=== PATIENT | male | born 1955 | race Caucasian/White ===

== ENCOUNTER 2019-04-09 20:59 | Emergency (ER) | payer BC, OTHER ==
[~2019-04-09] VITALS: Ht 182.9 cm; Wt 97.5 kg
[~2019-04-09 20:59] MED LIST: BAYER CHEWABLE81 MG PO; PRINIVIL20 MG PO; ZOCOR20 MG PO
[2019-04-09 22:00] VITALS: BP 116/95
== END 2019-04-09 22:01 | disposition home or self-care (01) ==
LOC: ER 20:59
DX: T18.128A Food in esophagus causing other injury, initial encounter (principal); I10 Essential (primary) hypertension; E78.00 Pure hypercholesterolemia, unspecified; X58.XXXA Exposure to other specified factors, initial encounter; Y93.89 Activity, other specified; Y92.89 Other specified places as the place of occurrence of the external cause; Y99.8 Other external cause status

== ENCOUNTER 2021-08-29 21:19 | Emergency (ER) | payer OTHER, MEDICARE ==
[~2021-08-29] VITALS: Ht 182.9 cm; Wt 102.1 kg
[2021-08-29 23:24] LABS: ABSOLUTE NEUTROPHILS 10.1 thou/uL (1.4-8.2); BASOPHILS 0.4 % (0.0-2.0); EOSINOPHILS 2.1 % (0.0-3.0); HEMATOCRIT 40.7 % (42.0-52.0); LYMPHOCYTES 12.3 % (24.0-44.0); MCH 31.3 pg (26.0-34.0); MCHC 34.4 g/dL (28.0-37.0); MONOCYTES 8.1 % (1.0-8.0); PLATELET COUNT 286 thou/uL (150-400); POLYS 77.1 % (36.0-66.0); RBC 4.47 mil/uL (4.50-6.00); RDW 12.2 % (10.5-14.5); WBC 13.1 thou/uL (4.0-11.0)
[2021-08-29 23:27] LABS: CALCIUM 8.9 mg/dL (8.5-10.1); CREATININE 0.9 mg/dL (0.7-1.3); POTASSIUM 4.1 mmol/L (3.5-5.1)
[2021-08-29 23:33] LABS: ALBUMIN 3.9 g/dL (3.4-5.0); TOTAL BILIRUBIN 0.3 mg/dL (0.2-1.0); TOTAL PROTEIN 7.4 g/dL (6.4-8.2)
[2021-08-30 00:20] VITALS: BP 171/84
== END 2021-08-30 00:20 | disposition home or self-care (01) ==
LOC: ER 21:19
PROVIDERS: Emergency Medicine
DX: T18.128A Food in esophagus causing other injury, initial encounter (principal); Z20.822 Contact with and (suspected) exposure to COVID-19; I10 Essential (primary) hypertension; E78.00 Pure hypercholesterolemia, unspecified; Z79.82 Long term (current) use of aspirin; Z79.899 Other long term (current) drug therapy; Z98.890 Other specified postprocedural states; Y92.89 Other specified places as the place of occurrence of the external cause